=== PATIENT | male | born 1970 | race Caucasian/White ===

== ENCOUNTER 2017-03-08 22:08 | Emergency (ER) | payer SELFPAY ==
[2017-03-08 22:23] VITALS: BP 158/107; PULSE 76; TEMP 97.9; BMI 31.4
--- NOTE | 2017-03-08 22:59 | PDOC ---
History of Present Illness - General History Source: Patient Exam Limitations: No Limitations - History of Present Illness Initial Comments: 03/08/17 23:27 The patient is a 46-year-old male, with no significant past medical history, who presents to the ED with a rash that began yesterday. Pt states that he noted red itchy bumps on his arms yesterday that have began to spread to his back and down his legs. No one else in his household has a rash. He denies having any pets or bed bugs. Pt has never had the chicken pox. He denies any fever, chills, nausea, vomiting, or diarrhea. <Jessica Pathak - Last Filed: 03/08/17 23:27> <Kerline Porter - Last Filed: 03/08/17 23:50> - General Chief Complaint: Rash Stated Complaint: ALLERGIC REACTION Time Seen by Provider: 03/08/17 22:58 Past History <Jessica Pathak - Last Filed: 03/08/17 23:27> - Past Medical History Other medical history: Pt denies - Psycho/Social/Smoking Cessation Hx Suicidal Ideation: No Smoking History: Never smoked Information on smoking cessation initiated: No Hx Alcohol Use: No Drug/Substance Use Hx: No Substance Use Type: None <Kerline Porter - Last Filed: 03/08/17 23:50> - Past Medical History Allergies/Adverse Reactions: Allergies Allergy/AdvReac Type Severity Reaction Status Date / Time No Known Allergies Allergy Verified 03/08/17 22:20 Home Medications: Ambulatory Orders Calamine/Zinc Oxide [Calamine Lotion] 1 applic TP BID #177 ml 03/08/17 Valacyclovir HCl [Valtrex] 1,000 mg PO TID #21 tablet 03/08/17 Review of Systems - Review of Systems Able to Perform ROS?: Yes Comments:: 03/08/17 23:28 CONSTITUTIONAL: Absent: fever, no chills, no fatigue EYES: Absent: visual changes ENT: Absent: ear pain, no sore throat CARDIOVASCULAR: Absent: chest pain, no palpitations RESPIRATORY: Absent: cough, no SOB GI: Absent: abdominal pain, no nausea, no vomiting, no constipation, no diarrhea GENITOURINARY: Absent: dysuria, no frequency, no hematuria MUSKULOSKELETAL: Absent: back pain, no arthralgia, no myalgia SKIN: Present: diffuse rash Absent: pallor NEURO: Absent: headache <Jessica Pathak - Last Filed: 03/08/17 23:27> *Physical Exam - Vital Signs Last Vital Signs Temp Pulse Resp BP Pulse Ox 97.9 F 76 18 158/107 97 03/08/17 22:21 03/08/17 22:21 03/08/17 22:21 03/08/17 22:21 03/08/17 22:21 - Physical Exam Comments: 03/08/17 23:29 GENERAL: Well-appearing, well-nourished. No apparent distress. HEENT: Normocephalic, atraumatic. PERRL, EOM intact. CARDIOVASCULAR: Normal S1, S2. Regular rate and rhythm. PULMONARY: Clear to auscultation bilaterally. ABDOMEN: Soft, non-distended, non-tender. EXTREMITIES: Normal ROM in all four extremities. No gross deformities. SKIN: Warm, dry. (+)vasicular rash all over body except face. NEUROLOGICAL: No focal neurological deficits. <Jessica Pathak - Last Filed: 03/08/17 23:27> - Vital Signs Last Vital Signs Temp Pulse Resp BP Pulse Ox 97.9 F 76 18 158/107 97 03/08/17 22:21 03/08/17 22:21 03/08/17 22:21 03/08/17 22:21 03/08/17 22:21 <Kerline Porter - Last Filed: 03/08/17 23:50> Medical Decision Making - Medical Decision Making 03/08/17 23:49 PT COMES WITH DIFFUSE VESICULAR RASH HE HAS NEVER HAD VARICELLA; NOW WITH VARICELLA OUTBREAK THAT STARTED YESTERDAY AND SPREAD ALL OVER HIS BODY; NO FACIAL INVOLVEMENT <Kerline Porter - Last Filed: 03/08/17 23:50> *DC/Admit/Observation/Transfer - Attestations Scribe Attestion: 03/08/17 23:31 Documentation prepared by Jessica Pathak, acting as medical billing service for Kerline Porter MD. <Jessica Pathak - Last Filed: 03/08/17 23:27> - Discharge Dispostion Admit: No <Kerline Porter - Last Filed: 03/08/17 23:50> Diagnosis at time of Disposition: Chicken pox - Discharge Dispostion Disposition: HOME Condition at time of disposition: Stable - Prescriptions Prescriptions: Calamine/Zinc Oxide [Calamine Lotion] 1 applic TP BID #177 ml Valacyclovir HCl [Valtrex] 1,000 mg PO TID #21 tablet - Patient Instructions Printed Discharge Instructions: Chickenpox, DI for Chickenpox-Adult, Varicella (Chickenpox) Vaccine
[2017-03-08] MEDS ORDERED: diphenhydrAMINE HCL 25 MG CAPSULE (FP) PO ONE ×2 (23:24→23:28)
[2017-03-08] MEDS ORDERED: valACYclovir HCL 1000 MG TABLET PO ONE (23:30)
== END 2017-03-09 00:55 | disposition home or self-care (01) ==
LOC: JER 22:08
DX: B01.9 Varicella without complication (principal)
CPT/HCPCS: 99281-25